=== PATIENT | female | born 1965 | race Caucasian/White ===

== ENCOUNTER 2023-04-29 13:33 | Outpatient (OUT) | payer OTHER, SELFPAY ==
--- NOTE | 2023-04-29 13:51 | MM_ITS ---
Patient: SYED SHELDON Exam Date: 04/29/2023 : 1965 Gender:F Ordering : DR Hugh Camacho . Admission #: [id number] Family : Order #: [id number] CLICK HERE TO VIEW EXAM RADIOLOGY REPORT PROCEDURE: MM TOMOSYNTHESIS SCREENING BI COMPARISON: MG MAMM SCREEN 3D TRACY CAD, 05/05/2021. MG MAMM RT DIAG FU, 03/01/2017. INDICATIONS: Screening Calculator Name NCI Breast Cancer Risk Assessment Tool 5 Year Breast Cancer Risk 2.20% Lifetime Breast Cancer Risk 13.00% Personal Breast Cancer No Personal Ovarian Cancer No Treatments None Family Cancers Sister with breast cancer at age ~50; Brother with colon cancer at age 54. LOCATION: [facility] BREAST COMPOSITION: Heterogeneously dense,which may obscure small masses. FINDINGS: DIAGNOSTIC CATEGORY 1--NEGATIVE. NO CHANGE FROM COMPARISON ASSESSMENT. Scattered benign-appearing calcifications are present. Scattered benign-appearing lymph nodes are present. RIGHT BREAST: No significant suspicious finding. LEFT BREAST: No significant suspicious finding. RECOMMENDATIONS: ROUTINE MAMMOGRAM AND CLINICAL EVALUATION IN 12 MONTHS. PLEASE NOTE: A NORMAL MAMMOGRAM DOES NOT EXCLUDE THE POSSIBILITY OF BREAST CANCER. A CLINICALLY SUSPICIOUS PALPABLE LUMP SHOULD BE BIOPSIED. Dictated by: Hema Foley MD on 05/02/2023 at 12:44 Approved by: Hema Foley MD on 05/02/2023 at 12:46
--- NOTE | 2023-04-29 13:51 | CT_ITS ---
[address] [address] Patient Name: SYED SHELDON MRN: [id number] date: 1965 Sex: F Assigned Patient Location: CT Current Patient Location: Accession/Order Number: [id number] Exam Date: 04/29/2023 14:05 Report Date: 05/02/2023 08:16 At the request of: SIMA EVERETT Procedure: CT lung screening low-dose EXAMINATION: CT lung screening low-dose HISTORY: Well Adult Z00.00 shortness of breath, cough, smoker COMPARISON: 07/29/2022 plain x-ray TECHNIQUE: Axial, Coronal, and Sagittal images were created without the administration of IV contrast material. Dose reduction techniques were achieved by using automated exposure control and/or adjustment of mA and/or kV according to patient size and/or use of iterative reconstruction technique. FINDINGS: LUNGS: Mild biapical pleural parenchymal scarring. Scattered noncalcified subcentimeter pulmonary nodules the largest on the right is a groundglass measuring 5.1 mm axial image 39. The largest on the left is solid measuring 4.4 mm, axial image 30 PLEURA: No mass, effusion, or pneumothorax. VASCULATURE: No abnormality. WINIFRED: Calcified left hilar lymph node MEDIASTINUM: No mass or pathologic adenopathy. CARDIAC: No enlargement, pericardial thickening, or significant calcification. AORTA: No aneurysm or dissection. CHEST WALL: No mass or axillary adenopathy BONES: No bone lesion or fracture. LIMITED ABDOMEN: 1.6 cm calcified lesion in the left upper quadrant, indeterminate OTHER: Negative. CT/CT lung screening low-dose IMPRESSION: LUNG SCREENING: Lung-RADS Category 2- Benign Appearance or Behavior. Nodules with a very low likelihood of becoming a clinically active cancer due to size or lack of growth. 2. Continue annual screening with LDCT in 12 months. Electronically authenticated by: NEVA JONES Date: 05/02/2023 08:16
== END 2023-04-29 13:34 | disposition home or self-care (01) ==
LOC: CT 13:37
PROVIDERS: PCP Family Medicine; Visit Provider Family Medicine
DX: Z12.31 Encounter for screening mammogram for malignant neoplasm of breast (principal); F17.211 Nicotine dependence, cigarettes, in remission; Z80.3 Family history of malignant neoplasm of breast; Z80.0 Family history of malignant neoplasm of digestive organs
CPT/HCPCS: 71271; 77063; 77067

== ENCOUNTER 2023-04-30 11:01 | Outpatient (OUT) | payer OTHER, SELFPAY ==
[2023-04-30 11:34] LABS: Estimated Average Glucose 108 mg/dL; Glycohemoglobin A1C 5.4 % (4.5-6.2)
[2023-04-30 11:47] LABS: Basophils Percent Auto 0.6 % (0.2-2.0); Eosinophils Absolute Auto 0.1 10^3/uL (0.0-0.7); Hematocrit 43.3 % (36.0-48.0); Hemoglobin 14.2 g/dL (12.0-16.0); Immature Granulocytes Abs Auto 0.03 10^3/uL (0.00-0.03); Immature Granulocytes Pct Auto 0.4 % (0.0-0.5); Lymphocytes Absolute Auto 2.8 10^3/uL (1.2-3.8); Lymphocytes Percent Auto 38.6 % (20.5-60.0); Mean Corpuscular HGB Conc 32.8 g/dL (29.9-35.2); Mean Corpuscular Hemoglobin 30.8 pg (26.7-34.0); Mean Corpuscular Volume 93.9 fL (81.0-99.0); Mean Platelet Volume 10.8 fL (9.5-13.5); Monocytes Absolute Auto 0.4 10^3/uL (0.3-0.8); Monocytes Percent Auto 5.5 % (1.7-12.0); Neutrophils Absolute Auto 3.9 10^3/uL (1.4-6.5); Neutrophils Percent Auto 53.9 % (43.0-75.0); Platelet Count 306 10^3/uL (150-450); Red Blood Count 4.61 10^6/uL (4.20-5.40); Red Cell Distribution Width 12.5 % (11.0-15.0); White Blood Count 7.2 10^3/uL (4.0-11.0)
[2023-04-30 12:18] LABS: Alanine Aminotransferase 25 U/L (14-59); Albumin Level 3.8 g/dL (3.4-5.0); Alkaline Phosphatase 76 U/L (46-116); Anion Gap 11.6; Aspartate Amino Transferase 14 U/L (15-37); BUN Creatinine Ratio 12.3; Bilirubin Total 0.4 mg/dL (0.2-1.0); Calcium 8.7 mg/dL (8.5-10.1); Carbon Dioxide 29.4 mmol/L (21.0-32.0); Chloride 104 mmol/L (98-107); Chol HDL Ratio 4.3; Cholesterol 204 mg/dL (<=200); Estimated GFR (African America >60 (>=60); Estimated GFR (Non-African Ame >60 (>=60); Free T3 2.91 pg/mL (2.18-3.98); Globulin 3.7 g/dL; Glucose 86 mg/dL (74-106); HDL Cholesterol 48 mg/dL (40-60); Sodium 141 mmol/L (136-145); Thyroid Stimulating Hormone 2.027 uIU/mL (0.358-3.740); Total Protein 7.5 g/dL (6.4-8.2); Triglycerides 131 mg/dL (<=150); VLDL CHOLESTEROL 26.2 mg/dL
== END 2023-04-30 11:02 | disposition home or self-care (01) ==
LOC: LAB 11:01
PROVIDERS: PCP Family Medicine; Visit Provider Family Medicine
DX: Z00.00 Encounter for general adult medical examination without abnormal findings (principal)
CPT/HCPCS: 36415; 80053; 80061; 83036; 83540; 84436; 84443; 84481; 85025

== ENCOUNTER 2025-01-14 14:09 | Outpatient (OUT) | payer OTHER, SELFPAY ==
--- NOTE | 2025-01-14 | CT_ITS ---
The [address] [address] Patient Name: SYED SHELDON MRN: [id number] date: 1965 Sex: F Assigned Patient Location: CT Current Patient Location: CT Accession/Order Number: [id number] Exam Date: 01/14/2025 14:57 Report Date: 01/14/2025 15:00 At the request of: SIMA EVERETT MD Procedure: CT lung screening low-dose CT CHEST WITHOUT CONTRAST, LOW DOSE SCREENING: CLINICAL DATA: A 59-year old current smoker COMPARISON: None TECHNIQUE: Noncontrast axial CT scan images of the chest were obtained under the low dose screening CT protocol. Coronal and sagittal reconstructed images were also submitted. FINDINGS: Mediastinum : Suboptimal evaluation due to low-dose technique. Thoracic aorta appears normal in caliber. Pulmonary trunk appears nondilated. No pericardial effusion. No lymphadenopathy. Calcified left hilar lymph node. The esophagus is grossly unremarkable. Lungs: No focal consolidation, pneumothorax or pleural effusion. Trachea and distal airways appear patent. Mild lung scarring is scattered tree-in-bud nodularity. Tracheal diverticulum. No suspicious noncalcified pulmonary nodule or mass. Upper abdomen: No acute findings. Partially calcified splenic artery aneurysm measuring 14 mm. Bony thorax and chest wall: Soft tissues surrounding the chest wall demonstrate no acute findings. Osseous structures demonstrate degenerative change. CT/CT lung screening low-dose IMPRESSION: NO SUSPICIOUS PULMONARY NODULE SEEN ON TODAY'S STUDY. LUNG - RADS Version 1.0 Assessment: Category 1, Negative (No nodules and definitely benign nodules). Management: Continue annual lung screening with LDCT in 12 months. Impression dictated by: Michael Padilla Jr., D.O. 01/14/2025 3:00 PM Dictation Location: [place] [address] Electronically authenticated by: [id number] Y Date: 01/14/2025 15:00
--- NOTE | 2025-01-14 15:52 | CT_ITS ---
The [address] [address] Patient Name: SYED SHELDON MRN: [id number] date: 1965 Sex: F Assigned Patient Location: CT Current Patient Location: CT Accession/Order Number: [id number] Exam Date: 01/14/2025 21:36 Report Date: 01/14/2025 21:43 At the request of: SIMA EVERETT MD Procedure: CT abdomen pelvis wo/w con CT Abdomen and Pelvis withcontrast TECHNIQUE: Axial imaging with 2-D reconstruction.100 cc of Omnipaque 300. The CT exam was performed using one or more the following dose reduction techniques: Automated exposure control, adjustment of the MA and/or Kv according to patient size, or use of the iterative reconstruction technique. COMPARISON: None History: History of bilateral kidney pain since that August. LIMITATIONS: None LOWER THORAX Unremarkable LIVER: Hepatic steatosis. 1 cm right hepatic hypodense lesion favoring small cyst. GALLBLADDER: Cholelithiasis. BILE DUCTS: No dilatation SPLEEN: Unremarkable PANCREAS: Unremarkable ADRENAL GLANDS: Unremarkable KIDNEYS:Unremarkable AORTA: No abdominal aortic aneurysm identified. Atherosclerosis. RETROPERITONEUM: No significant retroperitoneal abnormalities identified. MESENTERY:Unremarkable STOMACH:Unremarkable SMALL BOWEL: The small bowel loops are nondistended. APPENDIX: The appendix is normal. COLON: Multiple segment of circumferential wall thickening of the distal colon. Underdistention versus colitis. URINARY BLADDER: Urinary bladder is unremarkable. REPRODUCTIVE SYSTEM: Fibroid uterus. Unremarkable adnexa. PNEUMOPERITONEUM: None PERITONEAL FLUID:None BONY STRUCTURES: Unremarkable ABDOMINAL WALL: Unremarkable CT/CT abdomen pelvis wo/w con IMPRESSION: Segments of wall thickening of the distal colon. Differential consideration of underdistention and mild colitis or chronic inflammatory changes. Hepatic steatosis. 1 cm right hepatic hypodensity too small to characterize suspected represent small cysts. Cholelithiasis. Impression dictated by: Kobe Goodrich M.D. 01/14/2025 9:43 PM Dictation Location: [place] [address] Electronically authenticated by: [id number] Y Date: 01/14/2025 21:43
== END 2025-01-14 14:10 | disposition home or self-care (01) ==
LOC: CT 14:13
PROVIDERS: PCP Family Medicine; Visit Provider Family Medicine
DX: N23 Unspecified renal colic (principal); F17.210 Nicotine dependence, cigarettes, uncomplicated; K76.0 Fatty (change of) liver, not elsewhere classified; K80.20 Calculus of gallbladder without cholecystitis without obstruction
CPT/HCPCS: 71271; 74178; Q9967

== ENCOUNTER 2025-01-17 09:36 | Outpatient (OUT) | payer OTHER, SELFPAY ==
--- OUTSIDE RECORDS SUMMARY | 2025-01-17 09:41 | XMS_ITS | Clinical Summary ---
Author Organization [facility] Address [address] [place] [address] Care Team Providers Care Stave And Bolt Equalizer Name Role Phone Unavailable Primary Care Provider Unavailabl e Social History Tobacco Use Types Packs/Day Years Used Date Smoking Tobacco: Never Assessed Comments Unknown Sex and Gender Information Value Date Recorded Sex Assigned at Not on file Legal Sex Female 6:44 PM EDT Gender Identity Not on file Sexual Orientation Not on file Plan of Treatment Not on file
--- OUTSIDE RECORDS SUMMARY | 2025-01-17 09:41 | XMS_ITS | Clinical Summary ---
Author Organization [employer] [facility] Address [id number] [address] [place] [address] Care Team Providers Care Trust Administrator Name Role Phone Hugh Camacho MD Primary Care Provider [phone] Allergies No known active allergies Medications metoprolol tartrate (LOPRESSOR) 25 mg tablet Take 25 mg by mouth 2 (two) times a day. Active Immunizations Immunization Administration Dates Next Due Tdap 09/05/2019 Social History Tobacco Use Types Packs/Day Years Used Date Smoking Tobacco: Every Day Cigarettes Smokeless Tobacco: Never Alcohol Use Standard Drinks/Week Comments Never 0 (1 standard drink = 0.6 oz pur e alcohol) AUDIT-C Answer Date Recorded Frequency of Alcohol Consumption Never 09/05/2019 Average Number of Drinks Not on file 020 Frequency of Binge Drinking Not on file 11/2019 Childcare Answer Date Recorded Childcare Unknown 01/09/2019 Employment Answer Date Recorded Employment Unknown 01/09/2019 Purpose - Life Answer Date Recorded Purpose and direction in life Unknown Comments Unknown Sex and Gender Information Value Date Recorded Sex Assigned at Not on file Legal Sex Female 8:40 PM EDT Gender Identity Not on file Sexual Orientation Not on file Last Filed Vital Signs Vital Sign Reading Time Taken Comments Blood Pressure 135/79 09/05/2019 8:59 AM EST Pulse 71 09/05/2019 8:59 AM EST Temperature 36.6 C (97.9 F) 09/05/2019 8:59 AM EST Respiratory Rate 16 09/05/2019 8:59 AM EST Oxygen Saturation 94% 09/05/2019 8:59 AM EST Inhaled Oxygen Concentration - - Weight 63.5 kg (140 lb) 09/05/2019 8:59 AM EST Height 157.5 cm (5' 2 ) 09/05/2019 8:59 AM EST Body Mass Index 25.61 09/05/2019 8:59 AM EST Plan of Treatment Health Maintenance Due Date Last Done Comments Depression Screening 1977 Tobacco Screening 1977 Adult BMI Screening 09/30/1983 Pap Smear 1986 Zoster (Shingles) Vaccine (1 of 2) 09/30/2015 Influenza Vaccine 04/01/2025 DTaP,Tdap and Td Vaccines (2 - Td or Tdap) 09/05/2029 09/05/2019 Medical Devices Not on file Insurance [employer] Care Teams Trust Administrator Relationship Specialty Start Date End Date Hugh Camacho MD PCP - General Family Medicine 09/05/19
[2025-01-17 10:17] LABS: Basophils Percent Auto 0.6 % (0.2-2.0); Eosinophils Absolute Auto 0.1 10^3/uL (0.0-0.7); Eosinophils Percent Auto 1.2 % (0.9-7.0); Hematocrit 44.3 % (36.0-48.0); Hemoglobin 14.9 g/dL (12.0-16.0); Immature Granulocytes Abs Auto 0.02 10^3/uL (0.00-0.03); Immature Granulocytes Pct Auto 0.3 % (0.0-0.5); Lymphocytes Absolute Auto 2.7 10^3/uL (1.2-3.8); Lymphocytes Percent Auto 38.8 % (20.5-60.0); Mean Corpuscular HGB Conc 33.6 g/dL (29.9-35.2); Mean Corpuscular Volume 89.3 fL (81.0-99.0); Mean Platelet Volume 10.2 fL (9.5-13.5); Monocytes Absolute Auto 0.4 10^3/uL (0.3-0.8); Monocytes Percent Auto 5.5 % (1.7-12.0); Neutrophils Absolute Auto 3.7 10^3/uL (1.4-6.5); Neutrophils Percent Auto 53.6 % (43.0-75.0); Platelet Count 275 10^3/uL (150-450); Red Blood Count 4.96 10^6/uL (4.20-5.40); Red Cell Distribution Width 12.1 % (11.0-15.0); White Blood Count 6.9 10^3/uL (4.0-11.0)
[2025-01-17 10:47] LABS: Alanine Aminotransferase 28 U/L (14-59); Albumin Globulin Ratio 1.1; Albumin Level 3.8 g/dL (3.4-5.0); Alkaline Phosphatase 80 U/L (46-116); Anion Gap 15.4; Aspartate Amino Transferase 18 U/L (15-37); BUN Creatinine Ratio 16.7; Bilirubin Total 0.5 mg/dL (0.2-1.0); Calcium 9.1 mg/dL (8.5-10.1); Carbon Dioxide 25.8 mmol/L (21.0-32.0); Chloride 102 mmol/L (98-107); Chol HDL Ratio 4.3; Cholesterol 211 mg/dL (<=200); Estimated GFR (African America >60 (>=60 mL/min/1.73m^2); Estimated GFR (Non-African Ame >60 (>=60 mL/min/1.73m^2); Free T3 3.04 pg/mL (2.18-3.98); Globulin 3.4 g/dL; Glucose 97 mg/dL (74-106); HDL Cholesterol 49 mg/dL (40-60); Potassium 4.2 mmol/L (3.5-5.1); Sodium 139 mmol/L (136-145); Total Protein 7.2 g/dL (6.4-8.2); Triglycerides 130 mg/dL (<=150)
[2025-01-17 11:04] LABS: Estimated Average Glucose 117 mg/dL; Glycohemoglobin A1C 5.7 % (4.5-6.2)
== END 2025-01-17 09:37 | disposition home or self-care (01) ==
LOC: LAB 09:39
PROVIDERS: PCP Family Medicine; Visit Provider Family Medicine
DX: Z00.00 Encounter for general adult medical examination without abnormal findings (principal); K63.9 Disease of intestine, unspecified; K76.0 Fatty (change of) liver, not elsewhere classified; R53.83 Other fatigue
CPT/HCPCS: 36415; 80053; 80061; 82306; 83036; 84436; 84443; 84481; 85025

== ENCOUNTER 2025-02-12 13:27 | Outpatient (OUT) | payer OTHER, SELFPAY ==
--- OUTSIDE RECORDS SUMMARY | 2025-02-05 23:59 | XMS_ITS | Continuity of Care Document ---
Author Organization [facility] Address [address] [place] [address] Care Team Providers Care Lozenge Dough Mixer Name Role Phone Hugh Camacho Primary Care Physician [phone] Encounter FT_AMBFIN [id number] Date(s): 02/05/25 - 02/05/25 [facility] [address], [address], [place], [place] [address] Encounter Diagnosis Abnormal abdominal CT scan(Discharge Diagnosis) - 02/05/25 Personal history of colon polyps, unspecified(Discharge Diagnosis) - 02/05/25 Discharge Disposition: Home (Routine DC) Attending Physician: Brenden TOURE MD Referring Physician: Hugh Camacho MD Encounter Type: Clinic Allergies, Adverse Reactions, Alerts Substance Criticality Severity Reaction Reaction Severity Status cefdinir Kidney pain Active Medications Metoprolol tartrate 25 mg Tab 25 mg = 1 tab(s), Oral, BID, Refills(s) 0 Start Date: 01/23/25 Status: Ordered Repeat number: 1 Multi Vitamins oral tablet 1 tab(s), Oral, Daily, Refill(s) 0 Start Date: 02/05/25 Status: Ordered Repeat number: 1 Problem List Condition Confirmation Course Effective Dates Status H ealth Status Informant Cholelithiasis Confirmed Active Abnormal abdominal CT scan Confirmed Active GERD (gastroesophageal reflux disease) Confirmed Active History of colon polyps Confirmed Active Personal history of colon polyps, unspecified Confirmed Active Hypertension Confirmed Active Overweight Confirmed Active BMI 26.0-26.9,adult Confirmed Active Hepatic steatosis Confirmed Active Tobacco use Confirmed Active patient Procedures Procedure Date Related Diagnosis Body Site Status Colonoscopy 09/06/16 Completed Arthroscopy of knee Compl eted Colonoscopy Completed Colonoscopy Completed Endometrial ablation Comp leted Social History Social History Type Response Smoking Status 10 or more cigarette s (1/2 pack or more)/day in last 30 days;Never; Type: Cigarettes; Smoking Cessation Yes; Tobacco use per day: 0.5; Started at age: 14.0; entered on: 02/05/25 Sex Female Sex Representation Female (finding) Patient Care team information Care Team Personnel Name: Hugh Camacho MD Position: FT Physician Member Role: Primary Care Physician Address: [address] [place] [address] Telecom: Care Team Related Persons Name: ALICE COOLEY Name: AMINA SHELDON Insurance Providers Guarantor name: Health Plan Information #: 1 Payer: [employer] Payer Identifier: [id number] Member Number: [id number] Group Number: [id number] Subscriber Identifier: [id number] Relationship to Subscriber: Self Coverage Type: PRIVATE [employer] INSURANCE Coverage Verification Date: 25 Telecom: [employer] Address:
--- OUTSIDE RECORDS SUMMARY | 2025-02-12 13:30 | XMS_ITS | Clinical Summary ---
Author Organization [facility] Address [address] [place] [address] Care Team Providers Care Script Developer Name Role Phone Unavailable Primary Care Provider [...]
--- OUTSIDE RECORDS SUMMARY | 2025-02-12 13:30 | XMS_ITS | Clinical Summary ---
Author Organization [employer] [facility] Address [id number] [address] [place] [address] Care Team Providers Care Cartoon Artist Name Role Phone Hugh Camacho MD Primary Care Provider [phone] Allergies No known active allergies Medications metoprolol [...] 09/05/2019 Medical Devices Not on file Insurance [employer] Care Teams Cartoon Artist Relationship Specialty Start Date End Date Hugh Camacho MD PCP - General Family Medicine 09/05/19
== END 2025-02-12 13:28 | disposition home or self-care (01) ==
LOC: PST 13:27
PROVIDERS: PCP Family Medicine; Visit Provider Surgery
DX: Z01.818 Encounter for other preprocedural examination (principal); R93.3 Abnormal findings on diagnostic imaging of other parts of digestive tract

== ENCOUNTER 2025-02-20 08:06 | Day surgery (SDC) | payer OTHER, SELFPAY ==
--- NOTE | 2025-02-20 | OP_ITS ---
OPERATION DATE: 02/20/2025 PREOPERATIVE DIAGNOSIS: Abnormal sigmoid colon on CT scan, as well as personal history of colon polyps. POSTOPERATIVE DIAGNOSIS: Sigmoid diverticulosis. PROCEDURE: Colonoscopy to cecum. SURGEON: Brenden Valentine M.D. ANESTHESIA: Monitored anesthesia care. ESTIMATED BLOOD LOSS: Zero. INDICATIONS AND CONSENT: Patient is a 59-year-old female with recent abdominal pelvic CT scan which revealed some thickening of the distal sigmoid colon. She also has a remote history of colon polyps. Last colonoscopy in 2017 was normal. Indications, risks, benefits, alternatives of proceeding with colonoscopy were explained extensively to the patient, including the risks of bleeding, colon perforation or anesthetic complications. All of her questions were answered. Informed consent was obtained. PROCEDURE: Patient was brought to the operating room, placed in the left lateral decubitus position. Monitored anesthesia care was provided. Rectal exam was performed which showed no masses or blood. The scope was inserted into the anal canal. Under direct visualization was advanced. It was advanced to the cecum where cecal markings were clearly identified. There was noted to be a good prep. Upon withdrawal of the scope, mucosal surfaces were carefully examined. There were no mass lesions or polyps. No inflammatory changes or ulcerations. There was moderate sigmoid diverticulosis without inflammatory changes or scarring. Scope was retroflexed in the anal canal. There were some prominent rectal veins, no significant hemorrhoidal disease. The scope was then withdrawn. Patient tolerated procedure well, was sent to recovery room in good condition. Follow up screening colonoscopy should be in 10 years. CC: Hugh Camacho M.D. [email or web address]
[2025-02-20 08:20] VITALS: BP 145/89; PULSE 89; TEMP 36.4; O2SAT 96; BMI 27.7
[2025-02-20] MEDS: 0.9 % SODIUM CHLORIDE 500 ML 50 ML IV (08:31)
[2025-02-20 09:27] VITALS: BP 138/76; PULSE 86; O2SAT 95
[2025-02-20 09:42] VITALS: BP 137/74; PULSE 79; O2SAT 94
[2025-02-20 09:57] VITALS: BP 133/84; PULSE 77; O2SAT 94
== END 2025-02-20 10:10 | disposition home or self-care (01) ==
LOC: SURGOUT 08:06
PROVIDERS: PCP Family Medicine; Visit Provider Surgery
PROC: (CPT 811; principal; 2025-02-20 09:00)
DX: R93.3 Abnormal findings on diagnostic imaging of other parts of digestive tract (principal); K57.30 Diverticulosis of large intestine without perforation or abscess without bleeding; Z86.0100 Personal history of colon polyps, unspecified; I10 Essential (primary) hypertension; K21.9 Gastro-esophageal reflux disease without esophagitis; K76.0 Fatty (change of) liver, not elsewhere classified; F17.210 Nicotine dependence, cigarettes, uncomplicated
CPT/HCPCS: 45378; J2704